=== PATIENT | female | born 1995 | race Asian ===

== ENCOUNTER 2023-07-30 10:05 | Outpatient (CLI) | payer OTHER, SELFPAY ==
--- NOTE | ~2023-07-30 | XR_ITS ---
Clinical Indication: Screening for respiratory tuberculosis PA and lateral views of the chest: Comparison: None Findings: The lungs are clear, without evidence of focal consolidation or pleural effusion. Cardiome diastinal silhouette is within normal limits. Bones and soft tissues are unremarkable. Impression: Normal chest. Reviewed, dictated and finalized at [facility]. Impression: Normal chest.
== END 2023-07-30 10:06 | disposition home or self-care (01) ==
PROVIDERS: Visit Provider Pediatrics
DX: Z11.1 Encounter for screening for respiratory tuberculosis (principal)
CPT/HCPCS: 71046